=== PATIENT | female | born 1960 | race American Indian/Alaskan Native ===

== ENCOUNTER 2017-06-25 07:34 | Inpatient (IN) | payer MEDICARE, OTHER ==
[2017-06-25 07:39] VITALS: BMI 31.0
[2017-06-25] MEDS ORDERED: Sodium Chloride 0.9% 1,000 ML IV SCH (08:00)
[2017-06-25 08:17] LABS: BASO # 0.1 K/uL (0.0-0.2); BASO % 0.6 % (0.0-2.0); EOS # 0.2 K/uL (0.0-0.7); EOS % 2.1 % (0.0-4.0); HEMOGLOBIN 14.4 g/dL (12.0-16.0); LYMPH # 2.8 K/uL (1.0-4.3); LYMPH % 28.1 % (20.0-40.0); MEAN CELL VOLUME 80.6 fl (81.0-99.0); MEAN CORPUSCULAR HEMOGLOBIN 26.3 pg (27.0-31.0); MEAN CORPUSCULAR HGB CONC 32.6 g/dL (33.0-37.0); MEAN PLATELET VOLUME 8.1 fl (7.2-11.7); MONO # 0.6 K/uL (0.0-0.8); MONO % 5.8 % (0.0-10.0); NEUT # 6.3 K/uL (1.8-7.0); NEUT % 63.4 % (50.0-75.0); NRBC % 0.1 % (0.0-0.0); RBC 5.47 Mil/uL (3.80-5.20); RED CELL DISTRIBUTION WIDTH 17.6 % (11.5-14.5); WHITE BLOOD COUNT 9.9 K/uL (4.8-10.8)
--- NOTE | 2017-06-25 08:18 | CT ---
PROCEDURE: CT HEAD WITHOUT CONTRAST. HISTORY: code stroke COMPARISON: None available. TECHNIQUE: Axial computed tomography images were obtained through the head/brain without intravenous contrast. Radiation dose: Total exam DLP = 908 mGy-cm. This CT exam was performed using one or more of the following dose reduction techniques: Automated exposure control, adjustment of the mA and/or kV according to patient size, and/or use of iterative reconstruction technique. FINDINGS: HEMORRHAGE: No intracranial hemorrhage. BRAIN: No mass effect or edema. No atrophy or chronic microvascular ischemic changes. VENTRICLES: Unremarkable. No hydrocephalus. CALVARIUM: Unremarkable. PARANASAL SINUSES: Unremarkable as visualized. No significant inflammatory changes. MASTOID AIR CELLS: Unremarkable as visualized. No inflammatory changes. OTHER FINDINGS: None. IMPRESSION: No acute intracranial pathology. Findings conveyed to Dr. Villeda by Dr. Carrillo at 8:15 a.m. on 06/25/2017.
[2017-06-25 08:28] LABS: ALB/GLOB RATIO 1.2 (1.0-2.1); ALBUMIN 4.1 g/dL (3.5-5.0); ALT/SGPT 52 U/L (9-52); AST/SGOT 35 U/L (14-36); BLOOD UREA NITROGEN 25 mg/dl (7-17); CALCIUM 8.9 mg/dL (8.4-10.2); GFR AFRICAN-AMERICAN > 60; GFR NON-AFRICAN AMERICAN > 60; HDL CHOLESTEROL 38 MG/DL (30-70)
[2017-06-25 08:31] LABS: PROTHROMBIN TIME 11.6 Seconds (9.8-13.1)
[2017-06-25 08:32] LABS: PARTIAL THROMBOPLASTIN TIME 26.8 Seconds (25.6-37.1)
[2017-06-25 08:38] LABS: LDL CHOLESTEROL 69 mg/dL (0-129)
[2017-06-25] MEDS ORDERED: Iodixanol 320 MG/ML 100 ML BOTTLE IV ONE (09:06)
[2017-06-25] MEDS ORDERED: Sodium Chloride 0.9% 100 ML ONE (09:06)
--- NOTE | 2017-06-25 09:23 | RAD ---
HISTORY: Code Stroke COMPARISON: No prior. FINDINGS: LUNGS: No active pulmonary disease. PLEURA: No significant pleural effusion identified, no pneumothorax apparent. CARDIOVASCULAR: Atherosclerotic aortic calcifications. Cardiomediastinal silhouette within normal limits. OSSEOUS STRUCTURES: No significant abnormalities. VISUALIZED UPPER ABDOMEN: Normal. OTHER FINDINGS: None. IMPRESSION: No active disease.
--- NOTE | 2017-06-25 09:59 | CT ---
EXAM: CT Angiography Head With Intravenous Contrast CLINICAL HISTORY: 57 years old, female; Pain; Headache; Additional info: Transient slurred speech/rue weakness TECHNIQUE: Axial computed tomographic angiography images of the head with intravenous contrast using CT angiography protocol. All CT scans at this facility use one or more dose reduction techniques, viz.: automated exposure control; ma/kV adjustment per patient size (including targeted exams where dose is matched to indication; i.e. head); or iterative reconstruction technique. MIP reconstructed images were created and reviewed. Coronal and sagittal reformatted images were created and reviewed. CONTRAST: 99 mL of [id number] administered intravenously. COMPARISON: CT - HEAD W/O (CODE STROKE) 2017-06-25 08:06 FINDINGS: Right internal carotid artery: No acute findings. Intracranial segment is patent with no significant stenosis. No aneurysm. Right anterior cerebral artery: Unremarkable. No occlusion or significant stenosis. No aneurysm. Right middle cerebral artery: Unremarkable. No occlusion or significant stenosis. No aneurysm. Right posterior cerebral artery: Unremarkable. No occlusion or significant stenosis. No aneurysm. Right vertebral artery: Unremarkable. Left internal carotid artery: No acute findings. Intracranial segment is patent with no significant stenosis. No aneurysm. Left anterior cerebral artery: Unremarkable. No occlusion or significant stenosis. No aneurysm. Left middle cerebral artery: Unremarkable. No occlusion or significant stenosis. No aneurysm. Left posterior cerebral artery: Unremarkable. No occlusion or significant stenosis. No aneurysm. Left vertebral artery: Unremarkable. Basilar artery: Unremarkable. No occlusion or significant stenosis. No aneurysm. IMPRESSION: Normal head CTA. EXAM: CT Angiography Neck With Intravenous Contrast CLINICAL HISTORY: 57 years old, female; Pain; Headache; Additional info: Transient slurred speech/rue weakness TECHNIQUE: Axial computed tomographic angiography images of the neck with intravenous contrast using CT angiography protocol. All CT scans at this facility use one or more dose reduction techniques, viz.: automated exposure control; ma/kV adjustment per patient size (including targeted exams where dose is matched to indication; i.e. head); or iterative reconstruction technique. MIP reconstructed images were created and reviewed. Coronal and sagittal reformatted images were created and reviewed. CONTRAST: 99 mL of [id number] administered intravenously. COMPARISON: No relevant prior studies available. FINDINGS: VASCULATURE: Right common carotid artery: Unremarkable. No significant stenosis. No dissection or occlusion. Right internal carotid artery: Unremarkable. Extracranial segment is patent with no significant stenosis. No dissection or occlusion. Right external carotid artery: Unremarkable. No occlusion. Right vertebral artery: Unremarkable. No significant stenosis. No dissection or occlusion. Left common carotid artery: Unremarkable. No significant stenosis. No dissection or occlusion. Left internal carotid artery: There is calcified plaque involving the left carotid bulb seen on image 25 series 601. Extracranial segment is patent with no significant stenosis. No dissection or occlusion. Left external carotid artery: Unremarkable. No occlusion. Left vertebral artery: Unremarkable. No significant stenosis. No dissection or occlusion. Other vasculature: There is gas in the brachiocephalic vein. NECK: Bones/joints: No acute fracture. No dislocation. Soft tissues: Unremarkable. No mass. Lung apices: Bilateral upper lobe pulmonary arterial branches filling defects seen on image 264 to 294 through series 3 representing pulmonary embolus. Heart: There is fluid in the superior pericardial recess. Mediastinum: Nonspecific esophageal thickening likely due to underdistention. CAROTID STENOSIS REFERENCE USING NASCET CRITERIA: % ICA stenosis = (1 - narrowest ICA diameter/diameter of distal cervical ICA) x 100. Mild - <50% stenosis. Moderate - 50-69% stenosis. Severe - 70-94% stenosis. Near occlusion - 95-99% stenosis. Occluded - 100% stenosis. IMPRESSION: 1. Bilateral upper lobe pulmonary arterial branches filling defects seen on image 264 to 294 through series 3 representing pulmonary embolus. 2. No acute vascular abnormality is identified in the carotid vertebral system and in the intracranial vasculature.
--- NOTE | 2017-06-25 10:18 | ED PDOC ---
HPI:STROKE - Historian Historian: Patient, Family (sister) - Chief Complaint Chief Complaint: Weakness, Slurred speech (unclear) - Onset Date: 06/25/17 Time: 06:30 Onset: This morning - Context Context: Home - Notes: Notes:: 57 year old female with medical history of COPD, HTN and HCL, presents to the emergency department for an evaluation of a possible stroke occurring between [id number] earlier this morning. Patient's sister states she witnessed patient ambulating well to fridge and had a water bottle slip out of her hands. Patient then attempted to picker bottle on floor 3 times unsuccessfully. 911 call was placed and sister was instructed to ask patient to say certain words, in which, patient repeated in an unclear speech. Patient denies any headache, dizziness, chest pain or shortness of breath. Of note, patient reports last alcoholic drink was 6 months ago. PMD: none provided NIHSS Stroke Scale - Date/Time Evaluation Performed When Was NIHSS Performed: Baseline - How Severe is the Stroke Level of Consciousness: 0=Alert LOC to Questions: 0=Both comments correct Best Gaze: 0=Normal Visual: 0=No visual loss Facial: 0=Normal Motor Arm - Left: 0=No drift Motor Arm - Right: 0=No drift Motor Leg - Left: 0=No drift Motor Leg - Right: 0=No drift Limb Ataxia: 0=Absent Sensory: 0=Normal Best Language: 0=No aphasia Dysarthia: 0=Normal articulation Extinction & Inattention (Neglect): 0=Normal, no object Severity Of Stroke: 0 = No Stroke rTPA Inclusion/Exclusion - Refusal of Treatment Patient Refused Treatment: No - Inclusion Criteria for Altepase Patient is 18 years or Older: Yes The Clinical Diagnosis of Ischemic Stroke That is Causing a Potentially Disabling Neurological Deficit: No Time of Onset is Well Established to be Less Than 270 Minute Before Treatment Would Begin: No Risk/Benefit Discussed With Patient/Family Member Present: Yes Past Medical History Reviewed: Historical Data, Nursing Documentation, Vital Signs Vital Signs: Last Vital Signs Temp 97 F L 06/25/17 07:37 Pulse 84 06/25/17 08:39 Resp 06/25/17 08:39 BP 150/77 06/25/17 08:39 Pulse Ox 88 L 06/25/17 08:39 - Medical History PMH: COPD, HTN, Hypercholesterolemia - Family History Family History: States: Stroke (mother), Diabetes (mother) - Social History Current smoker - smoking cessation education provided: No Alcohol: Other (last drink was 6 months ago) Drugs: Denies - Home Medications Home Medications: Ambulatory Orders Medication Instructions Recorded Aripiprazole [Abilify] 30 mg PO DAILY 06/25/17 Atorvastatin Calcium 40 mg PO HS 06/25/17 Bupropion HCl [Wellbutrin XL] 300 mg PO DAILY 06/25/17 Citalopram Hydrobromide 40 mg PO DAILY 06/25/17 [Citalopram HBr] Multivitamin/Minerals 1 tab PO DAILY 06/25/17 [place]-3S/Dha/Epa/Fish Oil/D3 800 mg PO DAILY 06/25/17 [Cardio [place] Benefits Softgel] Prazosin HCL [Minipress] 2 mg PO HS 06/25/17 Trazodone HCl 100 mg PO HS PRN 06/25/17 amLODIPine [Norvasc] 5 mg PO DAILY 06/25/17 hydroCHLOROthiazide [Microzide] 12.5 mg PO DAILY 06/25/17 - Allergies Allergies/Adverse Reactions: Allergies Allergy/AdvReac Type Severity Reaction Status Date / Time No Known Allergies Allergy Verified 06/25/17 07:50 Review of Systems ROS Statement: Except As Marked, All Systems Reviewed And Found Negative Cardiovascular: Negative for: Chest Pain Respiratory: Negative for: Shortness of Breath Musculoskeletal: Positive for: Other (able to ambulate without difficulty) Neurological: Positive for: Weakness, Change in Speech (not clear). Negative for: Headache, Dizziness Physical Exam - Reviewed Nursing Documentation Reviewed: Yes Vital Signs Reviewed: Yes - Physical Exam Appears: Positive for: No Acute Distress Head Exam: Positive for: ATRAUMATIC, NORMAL INSPECTION, NORMOCEPHALIC Neck: Positive for: Normal, Painless ROM, Supple Cardiovascular/Chest: Positive for: Regular Rate, Rhythm Respiratory: Positive for: Normal Breath Sounds. Negative for: Wheezing, Respiratory Distress Gastrointestinal/Abdominal: Positive for: Normal Exam, Soft. Negative for: Tenderness Extremity: Positive for: Normal ROM (upper/lower with 5/5 motor strength) Neurologic/Psych: Positive for: Alert (x3), sports reporter II-XII (intact), Oriented, Other (finger to nose is within normal limits). Negative for: Motor/Sensory Deficits, Aphasia, Facial Droop - Laboratory Results Result Diagrams: 06/25/17 08:08 06/25/17 08:08 - ECG O2 Sat by Pulse Oximetry: 88 (RA) Pulse Ox Interpretation: Normal - Critical Care Total Time (In Min): 30 Medical Decision Making Medical Decision Making: Initial Impression: possible CVA Initial Plan: * Type and screen * CT head without contrast * EKG * CMP * Hemoglobin A1C * Lipid panel * Troponin I * Stroke team consult 822 * CBC * PTT * PT * CXR * NS 1,000ml IV per 100mls/hr * Accucheck Time: 815 --CT head FINDINGS: HEMORRHAGE: No intracranial hemorrhage. BRAIN: No mass effect or edema. No atrophy or chronic microvascular ischemic changes. VENTRICLES: Unremarkable. No hydrocephalus. CALVARIUM: Unremarkable. PARANASAL SINUSES: Unremarkable as visualized. No significant inflammatory changes. MASTOID AIR CELLS: Unremarkable as visualized. No inflammatory changes. OTHER FINDINGS: None. IMPRESSION: No acute intracranial pathology. Time: 814 --Discussed case with Dr. Reyes who concurs with symptoms relating to TIA. --Will admit patient for further evaluation. Time: 920 -CXR: FINDINGS: LUNGS: No active pulmonary disease. PLEURA: No significant pleural effusion identified, no pneumothorax apparent. CARDIOVASCULAR: Atherosclerotic aortic calcifications. Cardiomediastinal silhouette within normal limits. OSSEOUS STRUCTURES: No significant abnormalities. VISUALIZED UPPER ABDOMEN: Normal. OTHER FINDINGS: None. IMPRESSION: No active disease. Time: 958 --CTA head FINDINGS: Right internal carotid artery: No acute findings. Intracranial segment is patent with no significant stenosis. No aneurysm. Right anterior cerebral artery: Unremarkable. No occlusion or significant stenosis. No aneurysm. Right middle cerebral artery: Unremarkable. No occlusion or significant stenosis. No aneurysm. Right posterior cerebral artery: Unremarkable. No occlusion or significant stenosis. No aneurysm. Right vertebral artery: Unremarkable. Left internal carotid artery: No acute findings. Intracranial segment is patent with no significant stenosis. No aneurysm. Left anterior cerebral artery: Unremarkable. No occlusion or significant stenosis. No aneurysm. Left middle cerebral artery: Unremarkable. No occlusion or significant stenosis. No aneurysm. Left posterior cerebral artery: Unremarkable. No occlusion or significant stenosis. No aneurysm. Left vertebral artery: Unremarkable. Basilar artery: Unremarkable. No occlusion or significant stenosis. No aneurysm. IMPRESSION: Normal head CTA. --CTA Neck FINDINGS: VASCULATURE: Right common carotid artery: Unremarkable. No significant stenosis. No dissection or occlusion. Right internal carotid artery: Unremarkable. Extracranial segment is patent with no significant stenosis. No dissection or occlusion. Right external carotid artery: Unremarkable. No occlusion. Right vertebral artery: Unremarkable. No significant stenosis. No dissection or occlusion. Left common carotid artery: Unremarkable. No significant stenosis. No dissection or occlusion. Left internal carotid artery: There is calcified plaque involving the left carotid bulb seen on image 25 series 601. Extracranial segment is patent with no significant stenosis. No dissection or occlusion. Left external carotid artery: Unremarkable. No occlusion. Left vertebral artery: Unremarkable. No significant stenosis. No dissection or occlusion. Other vasculature: There is gas in the brachiocephalic vein. NECK: Bones/joints: No acute fracture. No dislocation. Soft tissues: Unremarkable. No mass. Lung apices: Bilateral upper lobe pulmonary arterial branches filling defects seen on image 264 to 294 through series 3 representing pulmonary embolus. Heart: There is fluid in the superior pericardial recess. Mediastinum: Nonspecific esophageal thickening likely due to underdistention. CAROTID STENOSIS REFERENCE USING NASCET CRITERIA: % ICA stenosis = (1 - narrowest ICA diameter/diameter of distal cervical ICA) x 100. Mild - <50% stenosis. Moderate - 50-69% stenosis. Severe - 70-94% stenosis. Near occlusion - 95-99% stenosis. Occluded - 100% stenosis. IMPRESSION: 1. Bilateral upper lobe pulmonary arterial branches filling defects seen on image 264 to 294 through series 3 representing pulmonary embolus. 2. No acute vascular abnormality is identified in the carotid vertebral system and in the intracranial vasculature. Scribe Attestation: Documented by Ngozi Topete, acting as a scribe for Sydni Villeda MD. Provider Scribe Attestation: All medical record entries made by the Scribe were at my direction and personally dictated by me. I have reviewed the chart and agree that the record accurately reflects my personal performance of the history, physical exam, medical decision making, and the department course for this patient. I have also personally directed, reviewed, and agree with the discharge instructions and disposition. Disposition - Clinical Impression Clinical Impression: TIA (transient ischemic attack) - Patient ED Disposition Is Patient to be Admitted: Yes Doctor Will See Patient In The: Hospital - Disposition Disposition: Routine/Home Disposition Time: 13:07 Condition: FAIR - POA Present On Arrival: None
[2017-06-25] MEDS ORDERED: Enoxaparin 80 mg Syringe SC ONE (11:00)
--- NOTE | 2017-06-25 12:53 | CP.PCM.CON ---
History of Present Illness - History of Present Illness History of Present Illness: 57 yr old woman who was well until 630 am this morning, when she woke up and was going to bathroom, with witnessed slurred speech, and left arm numbness and heaviness. There was no headache, no aphasia, as witnessed by her sister, and no other symptoms. Past Patient History - Past Social History Alcohol: Other (last drink was 6 months ago) Drugs: Denies - CARDIAC Hx Hypercholesterolemia: Yes Hx Hypertension: Yes - PULMONARY Hx Chronic Obstructive Pulmonary Disease (COPD): Yes Meds Allergies/Adverse Reactions: Allergies Allergy/AdvReac Type Severity Reaction Status Date / Time No Known Allergies Allergy Verified 06/25/17 07:50 - Medications Medications: Current Medications Sodium Chloride (Sodium Chloride 0.9%) 1,000 mls @ 100 mls/hr IV .Q10H TONIA Last Admin: 06/25/17 08:27 Dose: 100 mls/hr Results - Vital Signs Recent Vital Signs: Last Vital Signs Temp 97 F L 06/25/17 07:37 Pulse 83 06/25/17 11:23 Resp 22 06/25/17 11:23 BP 128/86 06/25/17 11:23 Pulse Ox 91 L 06/25/17 11:23 - Labs Result Diagrams: 06/25/17 08:08 06/25/17 08:08 Labs: Laboratory Results - last 24 hr 06/25/17 06/25/17 06/25/17 07:52 08:08 08:08 WBC 9.9 RBC 5.47 H Hgb 14.4 Hct 44.1 MCV 80.6 L MCH 26.3 L MCHC 32.6 L RDW 17.6 H Plt Count 275 MPV 8.1 Neut % (Auto) 63.4 Lymph % (Auto) 28.1 [place] % (Auto) 5.8 Eos % (Auto) 2.1 Baso % (Auto) 0.6 Neut # (Auto) 6.3 Lymph # (Auto) 2.8 [place] # (Auto) 0.6 Eos # (Auto) 0.2 Baso # (Auto) 0.1 PT INR APTT Sodium 146 Potassium 3.2 L Chloride 105 Carbon Dioxide 24 Anion Gap 20 BUN 25 H Creatinine 0.9 Est GFR ( Amer) > 60 Est GFR (Non-Af Amer) > 60 POC Glucose (mg/dL) 130 H Random Glucose 134 H Calcium 8.9 Total Bilirubin 1.0 AST 35 ALT 52 Alkaline Phosphatase 85 Troponin I 0.0410 Total Protein 7.5 Albumin 4.1 Globulin 3.4 Albumin/Globulin Ratio 1.2 Triglycerides 122 Cholesterol 135 LDL Cholesterol Direct 69 HDL Cholesterol 38 Blood Type Antibody Screen BBK History Checked 06/25/17 06/25/17 08:08 08:23 WBC RBC Hgb Hct MCV MCH MCHC RDW Plt Count MPV Neut % (Auto) Lymph % (Auto) [place] % (Auto) Eos % (Auto) Baso % (Auto) Neut # (Auto) Lymph # (Auto) [place] # (Auto) Eos # (Auto) Baso # (Auto) PT 11.6 INR 1.0 APTT 26.8 Sodium Potassium Chloride Carbon Dioxide Anion Gap BUN Creatinine Est GFR ( Amer) Est GFR (Non-Af Amer) POC Glucose (mg/dL) Random Glucose Calcium Total Bilirubin AST ALT Alkaline Phosphatase Troponin I Total Protein Albumin Globulin Albumin/Globulin Ratio Triglycerides Cholesterol LDL Cholesterol Direct HDL Cholesterol Blood Type B POSITIVE Antibody Screen Negative BBK History Checked No verified bt
[2017-06-25] MEDS ORDERED: Potassium Chloride 20 mEq ER Tab PO ONE (13:06)
--- NOTE | 2017-06-25 20:40 | CP.PCM.HP ---
History of Present Illness - History of Present Illness History of Present Illness: This is 57 y/o female admitted for a brief period of right upper ext weakness and slurred speech early in the morning. Family and patient claim that around 6: 30 in the morning, she noted that a bottle of water kept on slipping out of her hand and sister noted slurred speech, she was brought to [facility] and during transport her symptoms were noted to have resolved. She has a hx of HTN hyperlipidemia and psychiatric condition ( depression and psychosis? Currently on Norvasc, statin ASA , abilify, wellbutrin, Citalopram and trazodone. A CTA was performed and MRA showed no acute findings. There was no carotid stenosis. An incidental finding of bilateral Pulmonary embolism was noted. She denies any chest pain, or SOB. She also denies any leg pain. She has been ambulatory and claims that shes physically active and denies sedentary activity. Present on Admission - Present on Admission Any Indicators Present on Admission: No History of DVT/PE: No History of Uncontrolled Diabetes: No Urinary Catheter: No Decubitus Ulcer Present: No Review of Systems - Psychiatric Psychiatric: Depression Past Patient History - Past Social History Smoking Status: Current Some Days Smoker - CARDIAC Hx Hypercholesterolemia: Yes Hx Hypertension: Yes - PULMONARY Hx Chronic Obstructive Pulmonary Disease (COPD): Yes - HEMATOLOGICAL/ONCOLOGICAL Hx AIDS: No Hx Human Immunodeficiency Virus (HIV): No - MUSCULOSKELETAL/RHEUMATOLOGICAL Hx Falls: No - PSYCHIATRIC Hx Substance Use: No - SURGICAL HISTORY Hx Surgeries: No Meds Allergies/Adverse Reactions: Allergies Allergy/AdvReac Type Severity Reaction Status Date / Time No Known Allergies Allergy Verified 06/25/17 07:50 Physical Exam - Head Exam Head Exam: NORMAL INSPECTION - Eye Exam Eye Exam: Normal appearance - ENT Exam ENT Exam: Mucous Membranes Moist - Respiratory Exam Respiratory Exam: Clear to Auscultation Bilateral, NORMAL BREATHING PATTERN - Cardiovascular Exam Cardiovascular Exam: REGULAR RHYTHM - GI/Abdominal Exam GI & Abdominal Exam: Normal Bowel Sounds - Neurological Exam Neurological exam: Alert, CN II-XII Intact, Normal Gait, Oriented x3, Reflexes Normal - Psychiatric Exam Psychiatric exam: Normal Mood - Skin Skin Exam: Normal Color Results - Vital Signs Recent Vital Signs: Last Vital Signs Temp 98 F 06/25/17 20:06 Pulse 91 H 06/25/17 20:06 Resp 18 06/25/17 20:06 BP 119/84 06/25/17 20:06 Pulse Ox 92 L 06/25/17 20:06 - Labs Result Diagrams: 06/25/17 08:08 06/25/17 08:08 Labs: Laboratory Results - last 24 hr 06/25/17 06/25/17 06/25/17 07:52 08:08 08:08 WBC 9.9 RBC 5.47 H Hgb 14.4 Hct 44.1 MCV 80.6 L MCH 26.3 L MCHC 32.6 L RDW 17.6 H Plt Count 275 MPV 8.1 Neut % (Auto) 63.4 Lymph % (Auto) 28.1 [place] % (Auto) 5.8 Eos % (Auto) 2.1 Baso % (Auto) 0.6 Neut # (Auto) 6.3 Lymph # (Auto) 2.8 [place] # (Auto) 0.6 Eos # (Auto) 0.2 Baso # (Auto) 0.1 PT INR APTT Sodium 146 Potassium 3.2 L Chloride 105 Carbon Dioxide 24 Anion Gap 20 BUN 25 H Creatinine 0.9 Est GFR ( Amer) > 60 Est GFR (Non-Af Amer) > 60 POC Glucose (mg/dL) 130 H Random Glucose 134 H Calcium 8.9 Total Bilirubin 1.0 AST 35 ALT 52 Alkaline Phosphatase 85 Troponin I 0.0410 Total Protein 7.5 Albumin 4.1 Globulin 3.4 Albumin/Globulin Ratio 1.2 Triglycerides 122 Cholesterol 135 LDL Cholesterol Direct 69 HDL Cholesterol 38 Blood Type Antibody Screen BBK History Checked 06/25/17 06/25/17 08:08 08:23 WBC RBC Hgb Hct MCV MCH MCHC RDW Plt Count MPV Neut % (Auto) Lymph % (Auto) [place] % (Auto) Eos % (Auto) Baso % (Auto) Neut # (Auto) Lymph # (Auto) [place] # (Auto) Eos # (Auto) Baso # (Auto) PT 11.6 INR 1.0 APTT 26.8 Sodium Potassium Chloride Carbon Dioxide Anion Gap BUN Creatinine Est GFR ( Amer) Est GFR (Non-Af Amer) POC Glucose (mg/dL) Random Glucose Calcium Total Bilirubin AST ALT Alkaline Phosphatase Troponin I Total Protein Albumin Globulin Albumin/Globulin Ratio Triglycerides Cholesterol LDL Cholesterol Direct HDL Cholesterol Blood Type B POSITIVE Antibody Screen Negative BBK History Checked No verified bt Assessment & Plan (1) Pulmonary embolism Status: Acute (2) Hypertension Status: Acute (3) Hyperlipidemia Status: Acute (4) Depression Status: Acute (5) TIA (transient ischemic attack) Status: Acute - Assessment and Plan (Free Text) Plan: start Lovenox at 1 mg.kg q 12 hr Neuro eval Neuro check ASA 81 Pulmonary eval check A1c lipid tsh cmp cbc in am ECHO venous doppler lower ext start PT.
[2017-06-25] MEDS: Enoxaparin 80 mg Syringe SC SCH (21:38)
[2017-06-25 22:10] LABS: ABG ALLEN TEST YES; ARTERIAL BLOOD GAS HCO3 28.9 mmol/L (21-28); ARTERIAL BLOOD GAS HEMOGLOBIN 15.1 g/dL (11.7-17.4); ARTERIAL BLOOD GAS O2 CAPACITY 20.4 mL/dL (16-24); ARTERIAL BLOOD GAS O2 CONTENT 18.9 ML/dL (15-23); ARTERIAL BLOOD GAS O2 SAT 92.5 % (95-98); ARTERIAL BLOOD GAS PCO2 38 mm/Hg (35-45); ARTERIAL BLOOD GAS PH 7.49 (7.35-7.45); ARTERIAL BLOOD GAS PO2 58 mm/Hg (80-100); ARTERIAL BLOOD GAS TCO2 30.2 mmol/L (22-28)
[2017-06-26 06:03] LABS: ABG ALLEN TEST YES; ARTERIAL BLOOD GAS HEMOGLOBIN 14.3 g/dL (11.7-17.4); ARTERIAL BLOOD GAS O2 CAPACITY 19.5 mL/dL (16-24); ARTERIAL BLOOD GAS O2 CONTENT 18.6 ML/dL (15-23); ARTERIAL BLOOD GAS O2 SAT 95.6 % (95-98); ARTERIAL BLOOD GAS PCO2 43 mm/Hg (35-45); ARTERIAL BLOOD GAS PH 7.42 (7.35-7.45); ARTERIAL BLOOD GAS PO2 71 mm/Hg (80-100); ARTERIAL BLOOD GAS TCO2 29.2 mmol/L (22-28)
[2017-06-26] MEDS: Enoxaparin 80 mg Syringe SC SCH ×2 (09:28→21:50)
--- NOTE | 2017-06-26 10:05 | CP.PCM.PN ---
Subjective - Date & Time of Evaluation Date of Evaluation: 06/26/17 Time of Evaluation: 10:02 - Subjective Subjective: Ms. Williamson was seen and examined at the bedside. She is alert, oriented in all spheres. She denies any headache, dizziness, lightheadedness, nausea, or vomiting. She is able to follow all simple commands. A CTA showed no acute findings. There was no carotid stenosis. An incidental finding of bilateral Pulmonary embolism was noted. Ct scan showed normal.There was no untoward events overnight. Objective - Vital Signs/Intake and Output Vital Signs (last 24 hours): Temp Pulse Resp BP Pulse Ox 98.1 F 74 18 110/71 95 06/26/17 08:14 06/26/17 08:14 06/26/17 08:14 06/26/17 08:14 06/26/17 08:14 - Medications Medications: Current Medications Atorvastatin Calcium (Lipitor) 10 mg PO DAILY [facility] Enoxaparin Sodium (Lovenox) 80 mg SC Q12 [facility] PRN Reason: Protocol Last Admin: 06/26/17 09:28 Dose: 80 mg Sodium Chloride (Sodium Chloride 0.9%) 1,000 mls @ 100 mls/hr IV .Q10H [facility] Last Admin: 06/25/17 08:27 Dose: 100 mls/hr - Labs Labs: 06/25/17 08:08 06/25/17 08:08 PT 11.6 Seconds (9.8-13.1) 06/25/17 08:08 INR 1.0 (0.9-1.2) 06/25/17 08:08 APTT 26.8 Seconds (25.6-37.1) 06/25/17 08:08 - Constitutional Appears: No Acute Distress - Head Exam Head Exam: NORMAL INSPECTION - Neurological Exam Neurological Exam: Alert, Awake, Oriented x3 Neuro motor strength exam: Left Upper Extremity: 5, Right Upper Extremity: 5, Left Lower Extremity: 5, Right Lower Extremity: 5 Additional comments: She is alert, oriented , follows commands. Sensation in intact. Assessment and Plan (1) TIA (transient ischemic attack) Assessment & Plan: Case discussed with Dr. Reyes, continue all current medical, physical, and occupational therapies. Recommend immediate pulmonary consult and treatment of her pulmonary embolism. At this time, neurology is not her priority but to treat the PE. Status: Acute
--- NOTE | 2017-06-26 10:31 | CARD ---
APPROVED REPORT EKG Measurement Heart [id number] <Conclusion> Normal sinus rhythm Left posterior fascicular block Possible Inferior infarct, age undetermined Abnormal ECG
--- NOTE | 2017-06-26 11:08 | US ---
PROCEDURE: Bilateral lower extremity venous duplex Doppler. HISTORY: r/o DVT COMPARISON: None available. TECHNIQUE: Bilateral common femoral, superficial femoral, popliteal and posterior tibial veins were evaluated. Flow was assessed with color Doppler, compressibility, assessment of phasic flow and augmentation response. FINDINGS: COMMON FEMORAL VEIN: Right CFV: Unremarkable. Left CFV: Unremarkable. SUPERFICIAL FEMORAL VEIN: Right SFV: Unremarkable. Left SFV: Unremarkable. POPLITEAL VEIN: Right Popliteal: Unremarkable. Left Popliteal: Unremarkable. POSTERIOR TIBIAL VEIN: Right PTV: Unremarkable. Left PTV: Unremarkable. OTHER FINDINGS: None. IMPRESSION: No evidence of deep venous thrombosis.
--- NOTE | 2017-06-26 14:33 | CP.PCM.CON ---
History of Present Illness - History of Present Illness History of Present Illness: Pulmonary consult for a 57 y/o F, Hx of COPD , NOHELIA , Obesity , current smoker on O2 24/7 , c/o of with moderate SOB at the same time Patient developed neurologic symptoms DOA , ER [facility] B/L upper Lobe Pulmonary Emboli, incidentally found in the Head/Neck CTA of 06/25/17. Patient with no previous Hx of P/E or DVT Pt 's sister with Hx of NOHELIA, Obesity, COPD, permanent Tracheostomy and previous Hx years ago of DVT currently on Coumadin. Aggravated factor: Movements. Worsening symptoms: Hx of weakness RUE, slurred speech, witnessed by her sister while at home about 6:30 AM DOA, Pt was Tx in the ER with TPA and symptoms subsided. Patient's sister stated that Patient had COPD on O2 24/7 and off O2 POx is aprox. 85% Pt denied: Fever, chills, dizziness, CP, lightheadedness, legs pain, n/v/d, abdominal pain, urinary symptoms, sick contact, recent travel out of [place]. Ext [place] No evidence of DVT. Review of Systems - Review of Systems All systems: reviewed and no additional remarkable complaints except (HPI) - Constitutional Constitutional: Other (negative) - EENT Eyes: Requires Corrective Lenses Ears: Other (negative) Nose/Mouth/Throat: Other (negative) - Cardiovascular Cardiovascular: Other (negative) - Respiratory Respiratory: Dyspnea - Gastrointestinal Gastrointestinal: Other (negative) - Genitourinary Genitourinary: Other (negative) - Musculoskeletal Musculoskeletal: Other (negative) - Integumentary Integumentary: Other (negative) - Neurological Neurological: Other (negative) - Psychiatric Psychiatric: Other (negative) - Endocrine Endocrine: Other (negative) - Hematologic/Lymphatic Hematologic: Other (negative) Past Patient History - Past Medical History & Family History Pertinent Family History: Mother: Stroke, DM - Past Social History Smoking Status: Current Some Days Smoker Alcohol: Other (last drink 6 month ago.) Drugs: Denies Home Situation {Lives}: With Family - CARDIAC Hx Cardiac Disorders: Yes Hx Hypercholesterolemia: Yes Hx Hypertension: Yes - PULMONARY Hx Respiratory Disorders: Yes Hx Chronic Obstructive Pulmonary Disease (COPD): Yes - NEUROLOGICAL Hx Neurological Disorder: No - HEENT Hx HEENT Problems: Yes (NOHELIA) - RENAL Hx Chronic Kidney Disease: No - ENDOCRINE/METABOLIC Hx Endocrine Disorders: No Other/Comment: Obesity - HEMATOLOGICAL/ONCOLOGICAL Hx Blood Disorders: No Hx AIDS: No Hx Human Immunodeficiency Virus (HIV): No - INTEGUMENTARY Hx Dermatological Problems: No - MUSCULOSKELETAL/RHEUMATOLOGICAL Hx Musculoskeletal Disorders: No Hx Falls: No - GASTROINTESTINAL Hx Gastrointestinal Disorders: No - GENITOURINARY/GYNECOLOGICAL Hx Genitourinary Disorders: No - PSYCHIATRIC Hx Psychophysiologic Disorder: No Hx Substance Use: No - SURGICAL HISTORY Hx Surgeries: No Meds Allergies/Adverse Reactions: Allergies Allergy/AdvReac Type Severity Reaction Status Date / Time No Known Allergies Allergy Verified 06/25/17 07:50 - Medications Medications: Current Medications Atorvastatin Calcium (Lipitor) 10 mg PO DAILY [facility] Enoxaparin Sodium (Lovenox) 80 mg SC Q12 [facility] PRN Reason: Protocol Last Admin: 06/26/17 09:28 Dose: 80 mg Sodium Chloride (Sodium Chloride 0.9%) 1,000 mls @ 100 mls/hr IV .Q10H [facility] Last Admin: 06/25/17 08:27 Dose: 100 mls/hr Physical Exam - Constitutional Appears: No Acute Distress - Head Exam Head Exam: NORMAL INSPECTION - Eye Exam Eye Exam: PERRL - ENT Exam ENT Exam: Normal Exam - Neck Exam Neck exam: Positive for: Normal Inspection - Respiratory Exam Respiratory Exam: Decreased Breath Sounds (b/l) - Cardiovascular Exam Cardiovascular Exam: REGULAR RHYTHM - GI/Abdominal Exam GI & Abdominal Exam: Normal Bowel Sounds, Soft - Extremities Exam Extremities exam: Positive for: normal inspection - Back Exam Back exam: NORMAL INSPECTION - Neurological Exam Neurological exam: Alert, Oriented x3 Additional comments: No motor sensory deficit. - Psychiatric Exam Psychiatric exam: Normal Mood - Skin Skin Exam: Normal Color, Warm Results - Vital Signs Recent Vital Signs: Last Vital Signs Temp 98.1 F 06/26/17 12:19 Pulse 82 06/26/17 12:19 Resp 18 06/26/17 12:19 BP 114/79 06/26/17 12:19 Pulse Ox 95 06/26/17 12:19 reviewed Megan - Labs Result Diagrams: 06/25/17 08:08 06/25/17 08:08 Labs: Laboratory Results - last 24 hr 06/25/17 06/25/17 06/26/17 12:40 22:00 05:20 pCO2 38 pO2 58 L HCO3 28.9 H ABG pH 7.49 H ABG Total CO2 30.2 H ABG O2 Saturation 92.5 L ABG O2 Content 18.9 ABG Base Excess 5.4 H ABG Hemoglobin 15.1 ABG Carboxyhemoglobin 1.9 H POC ABG HHb (Measured) 7.3 H ABG Methemoglobin 1.4 ABG O2 Capacity 20.4 Rambo Test Yes A-a O2 Difference 94.0 Hgb O2 Saturation 89.4 L Vent Mode FiO2 28.0 Hemoglobin A1c 6.3 Triglycerides 124 Cholesterol 146 LDL Cholesterol Direct 78 HDL Cholesterol 37 TSH 3rd Generation 2.78 06/26/17 05:50 pCO2 43 pO2 71 L HCO3 27.0 ABG pH 7.42 ABG Total CO2 29.2 H ABG O2 Saturation 95.6 ABG O2 Content 18.6 ABG Base Excess 2.9 ABG Hemoglobin 14.3 ABG Carboxyhemoglobin 2.1 H POC ABG HHb (Measured) 4.3 ABG Methemoglobin 1.3 ABG O2 Capacity 19.5 Rambo Test Yes A-a O2 Difference 232.0 Hgb O2 Saturation 92.4 L Vent Mode Vm FiO2 50.0 Hemoglobin A1c Triglycerides Cholesterol LDL Cholesterol Direct HDL Cholesterol TSH 3rd Generation reviewed J.P. - EKG Data EKG comments: reviewed J.P. - Imaging and Cardiology Chest x-ray Status: Report reviewed by me (J.P.) CT scan - head Status: Report reviewed by me (DeliaP.) Additional comment: Head/Neck CTA: Reviewed J.P. Assessment & Plan (1) Pulmonary embolism, bilateral Status: Acute Priority: High (2) COPD (chronic obstructive pulmonary disease) Status: Chronic Priority: High (3) NOHELIA (obstructive sleep apnea) Status: Acute (4) TIA (transient ischemic attack) Status: Acute Priority: High - Assessment and Plan (Free Text) Plan: Continue Venti-Mask 50%, in AM to switch to NC, f/u Genetic markers, in AM switch Lovenox to Eliquis, Xarelto or Pradaxa as per approval by the insurance Co. - Date & Time Date: 06/26/17 Time: 12:00
--- NOTE | 2017-06-26 23:27 | CP.PCM.PN ---
Subjective - Date & Time of Evaluation Date of Evaluation: 06/26/17 Time of Evaluation: 10:35 - Subjective Subjective: Patient remains stable Has no SOB Has no chest pain Objective - Vital Signs/Intake and Output Vital Signs (last 24 hours): Temp Pulse Resp BP Pulse Ox 98.5 F 87 20 139/86 94 L 06/26/17 19:21 06/26/17 21:00 06/26/17 19:21 06/26/17 19:21 06/26/17 19:21 - Medications Medications: Current Medications Amlodipine Besylate (Norvasc) 5 mg PO DAILY [facility] Atorvastatin Calcium (Lipitor) 10 mg PO DAILY [facility] Last Admin: 06/26/17 21:50 Dose: 10 mg Citalopram Hydrobromide (Celexa) 40 mg PO DAILY [facility] Enoxaparin Sodium (Lovenox) 80 mg SC Q12 [facility] PRN Reason: Protocol Last Admin: 06/26/17 21:50 Dose: 80 mg Hydrochlorothiazide (Microzide) 12.5 mg PO DAILY [facility] Sodium Chloride (Sodium Chloride 0.9%) 1,000 mls @ 100 mls/hr IV .Q10H [facility] Last Admin: 06/25/17 08:27 Dose: 100 mls/hr Prazosin HCl (Minipress) 2 mg PO HS [facility] Trazodone HCl (Desyrel) 100 mg PO HS PRN PRN Reason: unable to sleep Last Admin: 06/26/17 22:55 Dose: 100 mg - Labs Labs: 06/25/17 08:08 06/25/17 08:08 PT 11.6 Seconds (9.8-13.1) 06/25/17 08:08 INR 1.0 (0.9-1.2) 06/25/17 08:08 APTT 26.8 Seconds (25.6-37.1) 06/25/17 08:08 - Head Exam Head Exam: NORMAL INSPECTION - Eye Exam Eye Exam: Normal appearance - ENT Exam ENT Exam: Mucous Membranes Moist - Respiratory Exam Respiratory Exam: Clear to Ausculation Bilateral - Cardiovascular Exam Cardiovascular Exam: REGULAR RHYTHM - GI/Abdominal Exam GI & Abdominal Exam: Normal Bowel Sounds - Neurological Exam Neurological Exam: CN II-XII Intact, Oriented x3 Assessment and Plan (1) Pulmonary embolism Status: Acute (2) Hypertension Status: Acute (3) Hyperlipidemia Status: Acute (4) Depression Status: Acute (5) TIA (transient ischemic attack) Status: Acute - Assessment and Plan (Free Text) Plan: Cont meds Cont Tx Cont PT start eliquis tomorrow
[2017-06-27 06:04] LABS: BASO # 0.1 K/uL (0.0-0.2); BASO % 0.5 % (0.0-2.0); EOS # 0.2 K/uL (0.0-0.7); EOS % 2.3 % (0.0-4.0); HEMOGLOBIN 14.6 g/dL (12.0-16.0); LYMPH # 2.8 K/uL (1.0-4.3); LYMPH % 25.6 % (20.0-40.0); MEAN CELL VOLUME 81.2 fl (81.0-99.0); MEAN CORPUSCULAR HEMOGLOBIN 26.8 pg (27.0-31.0); MEAN PLATELET VOLUME 8.2 fl (7.2-11.7); MONO # 0.7 K/uL (0.0-0.8); MONO % 6.7 % (0.0-10.0); NEUT # 7.1 K/uL (1.8-7.0); NEUT % 64.9 % (50.0-75.0); RBC 5.46 Mil/uL (3.80-5.20); RED CELL DISTRIBUTION WIDTH 18.2 % (11.5-14.5); WHITE BLOOD COUNT 10.9 K/uL (4.8-10.8)
[2017-06-27 06:19] LABS: INR 1.1 (0.9-1.2); PROTHROMBIN TIME 12.1 Seconds (9.8-13.1)
[2017-06-27 06:56] LABS: ALB/GLOB RATIO 1.1 (1.0-2.1); ALBUMIN 3.8 g/dL (3.5-5.0); ALT/SGPT 48 U/L (9-52); AST/SGOT 36 U/L (14-36); BLOOD UREA NITROGEN 14 mg/dl (7-17); CALCIUM 9.3 mg/dL (8.4-10.2); GFR AFRICAN-AMERICAN > 60; GFR NON-AFRICAN AMERICAN > 60
[2017-06-27] MEDS: Enoxaparin 80 mg Syringe SC SCH ×2 (09:16→21:07)
--- NOTE | 2017-06-27 10:53 | CP.PCM.PN ---
Subjective - Date & Time of Evaluation Date of Evaluation: 06/27/17 Time of Evaluation: 10:53 - Subjective Subjective: Ms. Williamson was seen and examined at the bedside. She is alert, oriented in all spheres. She denies any headache, shortness of breath, dizziness, lightheadedness, nausea, or vomiting. She is able to follow all simple commands. She remains on venti-mask. There was no untoward events overnight. Objective - Vital Signs/Intake and Output Vital Signs (last 24 hours): Temp Pulse Resp BP Pulse Ox 98.4 F 83 20 129/85 99 06/27/17 08:00 06/27/17 09:16 06/27/17 08:00 06/27/17 09:16 06/27/17 08:00 - Medications Medications: Current Medications Amlodipine Besylate (Norvasc) 5 mg PO DAILY [facility] Last Admin: 06/27/17 09:16 Dose: 5 mg Atorvastatin Calcium (Lipitor) 10 mg PO DAILY [facility] Last Admin: 06/27/17 09:16 Dose: 10 mg Citalopram Hydrobromide (Celexa) 40 mg PO DAILY [facility] Enoxaparin Sodium (Lovenox) 80 mg SC Q12 [facility] PRN Reason: Protocol Last Admin: 06/27/17 09:16 Dose: 80 mg Hydrochlorothiazide (Microzide) 12.5 mg PO DAILY [facility] Last Admin: 06/27/17 09:16 Dose: 12.5 mg Sodium Chloride (Sodium Chloride 0.9%) 1,000 mls @ 100 mls/hr IV .Q10H [facility] Last Admin: 06/25/17 08:27 Dose: 100 mls/hr Prazosin HCl (Minipress) 2 mg PO HS [facility] Trazodone HCl (Desyrel) 100 mg PO HS PRN PRN Reason: unable to sleep Last Admin: 06/26/17 22:55 Dose: 100 mg - Labs Labs: 06/27/17 04:20 06/27/17 04:20 PT 12.1 Seconds (9.8-13.1) 06/27/17 04:20 INR 1.1 (0.9-1.2) 06/27/17 04:20 APTT 29.0 Seconds (25.6-37.1) 06/27/17 04:20 - Constitutional Appears: No Acute Distress - Head Exam Head Exam: NORMAL INSPECTION - Neurological Exam Neurological Exam: Alert, Awake, Oriented x3 Neuro motor strength exam: Left Upper Extremity: 5, Right Upper Extremity: 5, Left Lower Extremity: 5, Right Lower Extremity: 5 Additional comments: Neurological unchanged from previous examination. Assessment and Plan (1) TIA (transient ischemic attack) Assessment & Plan: Case discussed with Dr. Madsen, continue all current medical regimen. Recommend to follow any orders from pulmonology for the patient's pulmonary embolism. Neurology is signing off from this case, please reconsult if there is a change in mental status. Status: Acute
--- NOTE | 2017-06-27 11:36 | CP.PCM.PN ---
Subjective - Date & Time of Evaluation Date of Evaluation: 06/27/17 Time of Evaluation: 11:36 - Subjective Subjective: patient has no SOB Has no chest pain. No further slurreing of speech or weakness of ext. Objective - Vital Signs/Intake and Output Vital Signs (last 24 hours): Temp Pulse Resp BP Pulse Ox 98.4 F 83 20 129/85 99 06/27/17 08:00 06/27/17 09:16 06/27/17 08:00 06/27/17 09:16 06/27/17 08:00 - Medications Medications: Current Medications Amlodipine Besylate (Norvasc) 5 mg PO DAILY [facility] Last Admin: 06/27/17 09:16 Dose: 5 mg Atorvastatin Calcium (Lipitor) 10 mg PO DAILY [facility] Last Admin: 06/27/17 09:16 Dose: 10 mg Citalopram Hydrobromide (Celexa) 40 mg PO DAILY [facility] Last Admin: 06/27/17 11:33 Dose: 40 mg Enoxaparin Sodium (Lovenox) 80 mg SC Q12 [facility] PRN Reason: Protocol Last Admin: 06/27/17 09:16 Dose: 80 mg Hydrochlorothiazide (Microzide) 12.5 mg PO DAILY [facility] Last Admin: 06/27/17 09:16 Dose: 12.5 mg Sodium Chloride (Sodium Chloride 0.9%) 1,000 mls @ 100 mls/hr IV .Q10H [facility] Last Admin: 06/25/17 08:27 Dose: 100 mls/hr Prazosin HCl (Minipress) 2 mg PO HS [facility] Trazodone HCl (Desyrel) 100 mg PO HS PRN PRN Reason: unable to sleep Last Admin: 06/26/17 22:55 Dose: 100 mg - Labs Labs: 06/27/17 04:20 06/27/17 04:20 PT 12.1 Seconds (9.8-13.1) 06/27/17 04:20 INR 1.1 (0.9-1.2) 06/27/17 04:20 APTT 29.0 Seconds (25.6-37.1) 06/27/17 04:20 - Head Exam Head Exam: NORMAL INSPECTION - Eye Exam Eye Exam: Normal appearance - ENT Exam ENT Exam: Mucous Membranes Moist - Respiratory Exam Respiratory Exam: Clear to Ausculation Bilateral - Cardiovascular Exam Cardiovascular Exam: REGULAR RHYTHM - GI/Abdominal Exam GI & Abdominal Exam: Normal Bowel Sounds - Neurological Exam Neurological Exam: Awake, Oriented x3 Assessment and Plan (1) Pulmonary embolism Status: Acute (2) Hypertension Status: Acute (3) Hyperlipidemia Status: Acute (4) Depression Status: Acute (5) TIA (transient ischemic attack) Status: Acute - Assessment and Plan (Free Text) Plan: Cont meds start Eliquis or xarelto cont lovenox while getting approval for xarelto
--- NOTE | 2017-06-27 12:41 | CARD ---
APPROVED REPORT EXAM: Two-dimensional and M-mode echocardiogram with Doppler and color Doppler. Other Information Quality : GoodRhythm : NSR INDICATION Pulmonary Embolism 2D DIMENSIONS IVSd1.19 (0.7-1.1cm)LVDd3.63 (3.9-5.9cm) LVOT Diameter2.01 (1.8-2.4cm)PWd1.00 (0.7-1.1cm) IVSs1.39 (0.8-1.2cm)LVDs2.09 (2.5-4.0cm) FS (%) 42.4 %PWs1.32 (0.8-1.2cm) M-Mode DIMENSIONS Left Atrium (MM)2.52 (2.5-4.0cm)IVSd1.03 (0.7-1.1cm) Aortic Root2.99 (2.2-3.7cm)LVDd3.86 (4.0-5.6cm) Aortic Cusp Exc.1.98 (1.5-2.0cm)PWd0.90 (0.7-1.1cm) IVSs1.80 cmFS (%) 45 % LVDs2.11 (2.0-3.8cm)PWs1.39 cm Aortic Valve LVOT Peak Kdwcruqs23.2cm/sLVOT VTI14.96cm Mitral Valve MV E Ojoolrao51.5cm/sMV DECEL [id number] A Gbbiwtag04.8cm/s MV SZB07jvX/A ratio0.7MVA (PHT)3.71cm2 TDI Lateral E' Peak V7.33cm/sMedial E' Peak V5.05cm/sE/Lateral E'7.4 E/Medial E'10.8 LEFT VENTRICLE The left ventricle is normal in size. There is normal left ventricular wall thickness. The overall left ventricular function is normal. The left ventricular ejection fraction is - 65%. There is normal LV segmental wall motion except for the right ventricualr overload pattern on the septum. Transmitral Doppler flow pattern is Grade I-abnormal relaxation pattern. No left ventricle thrombus noted on this study. There is no ventricular septal defect visualized. There is no left ventricular aneurysm. There is no mass noted in the left ventricle. RIGHT VENTRICLE The right ventricle is severely dilated. There is normal right ventricular wall thickness. There is a right ventricular overload pattern. ATRIA The left atrium size is normal. There is no thrombus suspected in the left atrium. The right atrium is severely dilated. The interatrial septum is intact with no evidence for an atrial septal defect. AORTIC VALVE The aortic valve is mildly thickened. No aortic regurgitation is present. There is no aortic valvular stenosis. MITRAL VALVE The mitral valve is normal in structure. There is no evidence of mitral valve prolapse. There is no mitral valve stenosis. There is no mitral valve regurgitation noted. TRICUSPID VALVE The tricuspid valve is normal in structure. There is mild tricuspid regurgitation. There is no tricuspid valve prolapse or vegetation. There is no tricuspid valve stenosis. PULMONIC VALVE The pulmonary valve is normal in structure. There is mild pulmonic valvular regurgitation. GREAT VESSELS The aortic root is normal in size. The IVC is normal in size and collapses >50% with inspiration. PERICARDIAL EFFUSION The pericardium appears normal. There is no pleural effusion. <Conclusion> The left ventricle is normal in size and wall thickness. The overall left ventricular function is normal. The left ventricular ejection fraction is - 65%. The right ventricle and right atrium are severely dilated. The aortic valve is mildly thickened but not stenotic The mitral and tricuspid valves are normal. There is mild tricuspid regurgitation.
--- NOTE | 2017-06-27 14:11 | PQF GENQUE ---
Dr. Henriquez, Please specify type of COPD:i.e >Stable > With acute exacerbation Bronchiectasis Chronic obstructive bronchitis Emphysema Other COPD (please specify) Clinically unable to determine Unknown DRAFT Pulmonary consult .; Hx of COPD , NOHELIA , Obesity , current smoker on O2 24/ 7 , c/o of with moderate SOB at the same time; -- Patient's sister stated that Patient had COPD on O2 24/7 and off O2 POx is aprox. 85% Respiratory: Dyspnea RespiratoryExam: Decreased Breath Sounds (b/l) Impression: (1) Pulmonary embolism, bilateral Status: Acute Priority: High (2) COPD (chronic obstructive pulmonary disease) Status: Chronic Priority: High (3) NOHELIA (obstructive sleep apnea) Status: Acute (4) TIA (transient ischemic attack) Status: Acute Priority: High Assessment and Plan (Free Text) : Plan: Continue Venti-Mask 50%, in AM to switch to NC, f/u Genetic markers, in AM switch Lovenox to Eliquis , Xarelto or Pradaxa as per approval by the insurance Co. Nasal Cannula; O2 Continuous This form is a permanent part of the medical record Clarification of your documentation is requested to better reflect the severity of illness and intensity of treatment of your patient. Indicators present [] Specify: [] [] Specify: [] [] Specify: [] [] Specify: [] Location in the medical record that reflects the above clinical findings: [] Treatment Provided: [] PHYSICIAN'S RESPONSE Based on your medical judgment of the clinical indicators outlined above please clarify the following: [] Practitioner response [] If unable to determine, please check the box, sign and date. Present On Admission (POA) Indicator: [] Present at the time of admission [] Not present at the time of admission [] Clinically Undetermined In responding to this query, please exercise your independent professional judgment. The fact that a question is asked does not imply that any particular answer is desired or expected. Thank you for your clarification on this documentation. If you have any questions please call. * Thank you, Adrianna Calles RN ext. #[phone] MTDD
--- NOTE | 2017-06-27 16:22 | CP.PCM.PN ---
Subjective - Date & Time of Evaluation Date of Evaluation: 06/27/17 Time of Evaluation: 09:20 - Subjective Subjective: No SOB with O2 , no cough , no chest congestion , no Chest pain Objective - Vital Signs/Intake and Output Vital Signs (last 24 hours): Temp Pulse Resp BP Pulse Ox 98.4 F 96 H 20 138/91 H 94 L 06/27/17 15:42 06/27/17 15:42 06/27/17 15:42 06/27/17 15:42 06/27/17 15:42 - Medications Medications: Current Medications Amlodipine Besylate (Norvasc) 5 mg PO DAILY [facility] Last Admin: 06/27/17 09:16 Dose: 5 mg Atorvastatin Calcium (Lipitor) 10 mg PO DAILY [facility] Last Admin: 06/27/17 09:16 Dose: 10 mg Citalopram Hydrobromide (Celexa) 40 mg PO DAILY [facility] Last Admin: 06/27/17 11:33 Dose: 40 mg Enoxaparin Sodium (Lovenox) 80 mg SC Q12 [facility] PRN Reason: Protocol Last Admin: 06/27/17 09:16 Dose: 80 mg Hydrochlorothiazide (Microzide) 12.5 mg PO DAILY [facility] Last Admin: 06/27/17 09:16 Dose: 12.5 mg Sodium Chloride (Sodium Chloride 0.9%) 1,000 mls @ 100 mls/hr IV .Q10H [facility] Last Admin: 06/25/17 08:27 Dose: 100 mls/hr Prazosin HCl (Minipress) 2 mg PO HS [facility] Trazodone HCl (Desyrel) 100 mg PO HS PRN PRN Reason: unable to sleep Last Admin: 06/26/17 22:55 Dose: 100 mg - Labs Labs: 06/27/17 04:20 06/27/17 04:20 PT 12.1 Seconds (9.8-13.1) 06/27/17 04:20 INR 1.1 (0.9-1.2) 06/27/17 04:20 APTT 29.0 Seconds (25.6-37.1) 06/27/17 04:20 - Constitutional Appears: No Acute Distress - Head Exam Head Exam: NORMAL INSPECTION - Eye Exam Eye Exam: PERRL - ENT Exam ENT Exam: Normal Exam - Neck Exam Neck Exam: Normal Inspection - Respiratory Exam Respiratory Exam: Clear to Ausculation Bilateral - Cardiovascular Exam Cardiovascular Exam: REGULAR RHYTHM - GI/Abdominal Exam GI & Abdominal Exam: Soft, Normal Bowel Sounds - Extremities Exam Extremities Exam: Normal Inspection - Back Exam Back Exam: NORMAL INSPECTION - Neurological Exam Neurological Exam: Alert, CN II-XII Intact. absent: Motor Sensory Deficit - Psychiatric Exam Psychiatric exam: Normal Affect - Skin Skin Exam: Warm Assessment and Plan (1) Pulmonary embolism, bilateral Status: Acute (2) COPD (chronic obstructive pulmonary disease) Status: Chronic (3) NOHELIA (obstructive sleep apnea) Status: Acute (4) TIA (transient ischemic attack) Status: Acute - Assessment and Plan (Free Text) Plan: continue Lovenox , cpap , pending approval by Insurance of [place] , Daniel or Pradaxa
[2017-06-28 00:22] VITALS: RESP 18
[2017-06-28] MEDS ORDERED: Potassium Chloride 20 mEq ER Tab PO ONE (07:08)
[2017-06-28] MEDS: Enoxaparin 80 mg Syringe SC SCH (08:24)
--- NOTE | 2017-06-28 09:32 | CP.PCM.PN ---
Subjective - Date & Time of Evaluation Date of Evaluation: 06/28/17 Time of Evaluation: 07:45 - Subjective Subjective: Patient seen and examined this morning at bedside w/ Dr. Henriquez. There are no acute events overnight, NAD. Patient feeling better, ambulating freely w/o assistance, voiding, and has no slurred speech. The patient denies headaches, chest pain, SOB, abdominal pain, nausea, vomiting, diarrhea, dysuria, or fever. Objective - Vital Signs/Intake and Output Vital Signs (last 24 hours): Temp Pulse Resp BP Pulse Ox 98.2 F 81 18 123/80 94 L 06/28/17 07:51 06/28/17 08:25 06/28/17 07:51 06/28/17 08:25 06/28/17 07:51 - Medications Medications: Current Medications Amlodipine Besylate (Norvasc) 5 mg PO DAILY [facility] Last Admin: 06/28/17 08:25 Dose: 5 mg Atorvastatin Calcium (Lipitor) 10 mg PO DAILY [facility] Last Admin: 06/28/17 08:25 Dose: 10 mg Citalopram Hydrobromide (Celexa) 40 mg PO DAILY [facility] Last Admin: 06/28/17 08:24 Dose: 40 mg Enoxaparin Sodium (Lovenox) 80 mg SC Q12 [facility] PRN Reason: Protocol Last Admin: 06/28/17 08:24 Dose: 80 mg Hydrochlorothiazide (Microzide) 12.5 mg PO DAILY [facility] Last Admin: 06/28/17 08:25 Dose: 12.5 mg Sodium Chloride (Sodium Chloride 0.9%) 1,000 mls @ 100 mls/hr IV .Q10H [facility] Last Admin: 06/25/17 08:27 Dose: 100 mls/hr Prazosin HCl (Minipress) 2 mg PO HS [facility] Last Admin: 06/27/17 21:05 Dose: 2 mg Trazodone HCl (Desyrel) 100 mg PO HS PRN PRN Reason: unable to sleep Last Admin: 06/27/17 21:06 Dose: 100 mg - Labs Labs: 06/27/17 04:20 06/27/17 04:20 PT 12.1 Seconds (9.8-13.1) 06/27/17 04:20 INR 1.1 (0.9-1.2) 06/27/17 04:20 APTT 29.0 Seconds (25.6-37.1) 06/27/17 04:20 - Constitutional Appears: Non-toxic, No Acute Distress - Head Exam Head Exam: ATRAUMATIC, NORMAL INSPECTION, NORMOCEPHALIC - Eye Exam Eye Exam: EOMI, Normal appearance, PERRL - ENT Exam ENT Exam: Mucous Membranes Moist - Neck Exam Neck Exam: Full ROM. absent: Tenderness - Respiratory Exam Respiratory Exam: Clear to Ausculation Bilateral. absent: Accessory Muscle Use , Decreased Breath Sounds, Rales, Rhonchi, Wheezes, Respiratory Distress - Cardiovascular Exam Cardiovascular Exam: REGULAR RHYTHM. absent: Tachycardia - GI/Abdominal Exam GI & Abdominal Exam: Soft, Normal Bowel Sounds. absent: Distended, Tenderness - Extremities Exam Extremities Exam: absent: Calf Tenderness, Pedal Edema, Tenderness - Neurological Exam Neurological Exam: Alert, Awake, Oriented x3 - Skin Skin Exam: Dry, Intact, Normal Color, Warm Assessment and Plan (1) Pulmonary embolism Status: Acute (2) TIA (transient ischemic attack) Status: Acute (3) Hyperlipidemia Status: Chronic (4) Hypertension Status: Chronic - Assessment and Plan (Free Text) Plan: c/w present management c/w home medications afebrile, non-tachycardic, normotensive neurology recommendations appreciated pulmonology recommendations appreciated U/S lower extremity 06/25/2017: no evidence of DVT c/w therapeutic lovenox 80 mg SC Q12h until approved for xarelto monitor for acute changes
[2017-06-28 11:06] LABS: INR 1.1 (0.9-1.2); PROTHROMBIN TIME 12.7 Seconds (9.8-13.1)
--- NOTE | 2017-06-28 11:50 | CP.PCM.DIS ---
Provider - Provider Date of Admission: 06/25/17 10:13 Attending physician: Ellis Henriquez MD Time Spent in preparation of Discharge (in minutes): 15 Diagnosis - Discharge Diagnosis (1) Pulmonary embolism Status: Acute (2) TIA (transient ischemic attack) Status: Acute Priority: High (3) Hyperlipidemia Status: Chronic (4) Hypertension Status: Chronic Hospital Course - Lab Results Lab Results: Most Recent Lab Values WBC 10.9 K/uL (4.8-10.8) H 06/27/17 04:20 RBC 5.46 Mil/uL (3.80-5.20) H 06/27/17 04:20 Hgb 14.6 g/dL (12.0-16.0) 06/27/17 04:20 Hct 44.3 % (34.0-47.0) 06/27/17 04:20 MCV 81.2 fl (81.0-99.0) 06/27/17 04:20 MCH 26.8 pg (27.0-31.0) L 06/27/17 04:20 MCHC 33.0 g/dL (33.0-37.0) 06/27/17 04:20 RDW 18.2 % (11.5-14.5) H 06/27/17 04:20 Plt Count 283 K/uL (130-400) 06/27/17 04:20 MPV 8.2 fl (7.2-11.7) 06/27/17 04:20 Neut % (Auto) 64.9 % (50.0-75.0) 06/27/17 04:20 Lymph % (Auto) 25.6 % (20.0-40.0) 06/27/17 04:20 [place] % (Auto) 6.7 % (0.0-10.0) 06/27/17 04:20 Eos % (Auto) 2.3 % (0.0-4.0) 06/27/17 04:20 Baso % (Auto) 0.5 % (0.0-2.0) 06/27/17 04:20 Neut # (Auto) 7.1 K/uL (1.8-7.0) H 06/27/17 04:20 Lymph # (Auto) 2.8 K/uL (1.0-4.3) 06/27/17 04:20 [place] # (Auto) 0.7 K/uL (0.0-0.8) 06/27/17 04:20 Eos # (Auto) 0.2 K/uL (0.0-0.7) 06/27/17 04:20 Baso # (Auto) 0.1 K/uL (0.0-0.2) 06/27/17 04:20 PT 12.7 Seconds (9.8-13.1) 06/28/17 10:00 INR 1.1 (0.9-1.2) 06/28/17 10:00 APTT 29.0 Seconds (25.6-37.1) 06/27/17 04:20 pCO2 43 mm/Hg (35-45) 06/26/17 05:50 pO2 71 mm/Hg (80-100) L 06/26/17 05:50 HCO3 27.0 mmol/L (21-28) 06/26/17 05:50 ABG pH 7.42 (7.35-7.45) 06/26/17 05:50 ABG Total CO2 29.2 mmol/L (22-28) H 06/26/17 05:50 ABG O2 Saturation 95.6 % (95-98) 06/26/17 05:50 ABG O2 Content 18.6 ML/dL (15-23) 06/26/17 05:50 ABG Base Excess 2.9 mmol/L (-2.0-3.0) 06/26/17 05:50 ABG Hemoglobin 14.3 g/dL (11.7-17.4) 06/26/17 05:50 ABG Carboxyhemoglobin 2.1 % (0.5-1.5) H 06/26/17 05:50 POC ABG HHb (Measured) 4.3 % (0.0-5.0) 06/26/17 05:50 ABG Methemoglobin 1.3 % (0.0-3.0) 06/26/17 05:50 ABG O2 Capacity 19.5 mL/dL (16-24) 06/26/17 05:50 Rambo Test Yes 06/26/17 05:50 A-a O2 Difference 232.0 mm/Hg 06/26/17 05:50 Hgb O2 Saturation 92.4 % (95.0-98.0) L 06/26/17 05:50 Vent Mode Vm 06/26/17 05:50 FiO2 50.0 % 06/26/17 05:50 Sodium 148 mmol/l (132-148) 06/27/17 04:20 Potassium 3.4 MMOL/L (3.6-5.0) L 06/27/17 04:20 Chloride 104 mmol/L (98-107) 06/27/17 04:20 Carbon Dioxide 29 mmol/L (22-30) 06/27/17 04:20 Anion Gap 18 (10-20) 06/27/17 04:20 BUN 14 mg/dl (7-17) 06/27/17 04:20 Creatinine 0.9 mg/dl (0.7-1.2) 06/27/17 04:20 Est GFR ( Amer) > 60 06/27/17 04:20 Est GFR (Non-Af Amer) > 60 06/27/17 04:20 POC Glucose (mg/dL) 129 mg/dL (65-110) H 06/27/17 11:39 Random Glucose 120 mg/dL (65-105) H 06/27/17 04:20 Hemoglobin A1c 6.3 % (4.2-6.5) 06/26/17 05:20 Calcium 9.3 mg/dL (8.4-10.2) 06/27/17 04:20 Total Bilirubin 0.7 mg/dl (0.2-1.3) 06/27/17 04:20 AST 36 U/L (14-36) 06/27/17 04:20 ALT 48 U/L (9-52) 06/27/17 04:20 Alkaline Phosphatase 84 U/L (38-126) 06/27/17 04:20 Troponin I 0.0410 ng/mL (0.00-0.120) 06/25/17 08:08 Total Protein 7.1 G/DL (6.3-8.2) 06/27/17 04:20 Albumin 3.8 g/dL (3.5-5.0) 06/27/17 04:20 Globulin 3.3 gm/dL (2.2-3.9) 06/27/17 04:20 Albumin/Globulin Ratio 1.1 (1.0-2.1) 06/27/17 04:20 Triglycerides 124 mg/DL (0-149) 06/26/17 05:20 Cholesterol 146 mg/dL (0-199) 06/26/17 05:20 LDL Cholesterol Direct 78 mg/dL (0-129) 06/26/17 05:20 HDL Cholesterol 37 MG/DL (30-70) 06/26/17 05:20 TSH 3rd Generation 2.78 mIU/ML (0.46-4.68) 06/26/17 05:20 Blood Type B POSITIVE 06/25/17 08:23 Antibody Screen Negative 06/25/17 08:23 BBK History Checked No verified bt 06/25/17 08:23 - Hospital Course Hospital Course: 57 y/o woman w/ pmh of stable COPD (on home O2), HTN, HLD admitted for TIA and PE. Patient seen and evaluated in ED for slurred speech and right arm weakness. Patient had head CT which was negative for intrcranial pathology. Patient also head CTA of the head and neck which showed no intracranial vascular abnormality; however, showed incidental PE of the upper lobes. Patient seen by neurology and pulmonology. Patient cleared by neuro. Patient started on therapeutic lovenox for anticoagulation and has been approved for eliquis for anticoagulation on DC. The patient reports feeling better, strength returned, speaking w/o slurring, voiding, and ambulating freely. The patient denies headaches, chest pain, SOB, abdominal pain, nausea, vomiting, diarrhea, dysuria, or fever. The patient has been seen, examined, and deemed medically fit for discharge home. The patient has been given an updated medication list and prescriptions. The patient is to start eliquis 5 mg PO Q12h for anticoagulation. [facility]. Discharge Exam - Head Exam Head Exam: ATRAUMATIC, NORMAL INSPECTION, NORMOCEPHALIC - Eye Exam Eye Exam: Normal appearance - ENT Exam ENT Exam: Mucous Membranes Moist - Neck Exam Neck exam: Full Rom - Respiratory Exam Respiratory Exam: Clear to PA & Lateral. absent: Accessory Muscle Use, Decreased Breath Sounds, Rales, Rhonchi, Wheezes, Respiratory Distress - Cardiovascular Exam Cardiovascular Exam: REGULAR RHYTHM. absent: Tachycardia - GI/Abdominal Exam GI & Abdominal Exam: Normal Bowel Sounds, Soft. absent: Distended, Tenderness - Extremities Exam Extremities exam: normal inspection - Neurological Exam Neurological exam: Alert, CN II-XII Intact, Normal Gait, Oriented x3 - Skin Skin Exam: Dry, Intact, Normal Color, Warm Discharge Plan - Discharge Medications Prescriptions: Atorvastatin [Lipitor] 10 mg PO DAILY #30 tab - Follow Up Plan Condition: FAIR Disposition: HOME/ ROUTINE Clinical Quality Measures - CQM - VTE Did patient receive overlap therapy during hosptialization?: Yes If yes, what was given to the patient?: lovenox 80 mg SC Q12h Is patient being discharged on overlap therapy?: Yes If yes, what prescription has been given to the patient?: eliquis 5 mg PO daily
[2017-06-28 12:22] VITALS: BP 114/79; PULSE 77; TEMP 98.1; O2SAT 95
--- NOTE | 2017-06-28 12:45 | CP.PCM.PN ---
Subjective - Date & Time of Evaluation Date of Evaluation: 06/28/17 Time of Evaluation: 12:30 - Subjective Subjective: F/U PE No shortness of breath , no dyspnea on exertion , no chest congestion , no chest pain Objective - Vital Signs/Intake and Output Vital Signs (last 24 hours): Temp Pulse Resp BP Pulse Ox 98.1 F 77 18 114/79 95 06/28/17 12:22 06/28/17 12:22 06/28/17 12:22 06/28/17 12:22 06/28/17 12:22 - Medications Medications: Current Medications Amlodipine Besylate (Norvasc) 5 mg PO DAILY [facility] Last Admin: 06/28/17 08:25 Dose: 5 mg Apixaban (Eliquis) 10 mg PO BID [facility] PRN Reason: Protocol Atorvastatin Calcium (Lipitor) 10 mg PO DAILY [facility] Last Admin: 06/28/17 08:25 Dose: 10 mg Citalopram Hydrobromide (Celexa) 40 mg PO DAILY [facility] Last Admin: 06/28/17 08:24 Dose: 40 mg Hydrochlorothiazide (Microzide) 12.5 mg PO DAILY [facility] Last Admin: 06/28/17 08:25 Dose: 12.5 mg Sodium Chloride (Sodium Chloride 0.9%) 1,000 mls @ 100 mls/hr IV .Q10H [facility] Last Admin: 06/25/17 08:27 Dose: 100 mls/hr Prazosin HCl (Minipress) 2 mg PO HS [facility] Last Admin: 06/27/17 21:05 Dose: 2 mg Trazodone HCl (Desyrel) 100 mg PO HS PRN PRN Reason: unable to sleep Last Admin: 06/27/17 21:06 Dose: 100 mg - Labs Labs: 06/27/17 04:20 06/27/17 04:20 PT 12.7 Seconds (9.8-13.1) 06/28/17 10:00 INR 1.1 (0.9-1.2) 06/28/17 10:00 APTT 29.0 Seconds (25.6-37.1) 06/27/17 04:20 - Constitutional Appears: No Acute Distress - Head Exam Head Exam: NORMAL INSPECTION - Eye Exam Eye Exam: PERRL - ENT Exam ENT Exam: Normal Exam - Neck Exam Neck Exam: Normal Inspection - Respiratory Exam Respiratory Exam: Clear to Ausculation Bilateral - Cardiovascular Exam Cardiovascular Exam: REGULAR RHYTHM - GI/Abdominal Exam GI & Abdominal Exam: Soft, Normal Bowel Sounds - Extremities Exam Extremities Exam: Normal Inspection - Back Exam Back Exam: NORMAL INSPECTION - Neurological Exam Neurological Exam: Alert, CN II-XII Intact, Oriented x3 - Psychiatric Exam Psychiatric exam: Normal Mood - Skin Skin Exam: Warm Assessment and Plan (1) Pulmonary embolism, bilateral Status: Acute (2) COPD (chronic obstructive pulmonary disease) Status: Chronic (3) NOHELIA (obstructive sleep apnea) Status: Acute (4) TIA (transient ischemic attack) Status: Acute - Assessment and Plan (Free Text) Plan: Eliquis approved by insurance company , continue CPAP , patient is pulmonary clear to for discharge
[2017-06-30 05:40] LABS: B2 GLYCOPROTEIN I AB(IGA) <9 SAU (<=20); B2 GLYCOPROTEIN I AB(IGG) <9 SGU (<=20); B2 GLYCOPROTEIN I AB(IGM) <9 SMU (<=20); PHOSPHATIDYLSERINE AB IGA <20 U/mL (<20); PHOSPHATIDYLSERINE AB IGG <10 U/mL (<10); PHOSPHATIDYLSERINE AB IGM <25 U/mL (<25)
== END 2017-06-28 14:38 | disposition home or self-care (01) | DRG 176 ==
LOC: H.ER 07:34 → H.ERHOLD 10:13 → H.TEL 13:37
PROVIDERS: ADMIT Family Medicine; ATTEND Family Medicine
DX: I26.99 Other pulmonary embolism without acute cor pulmonale (principal); G45.9 Transient cerebral ischemic attack, unspecified; I10 Essential (primary) hypertension; E78.5 Hyperlipidemia, unspecified; E78.00 Pure hypercholesterolemia, unspecified; F32.9 Major depressive disorder, single episode, unspecified; G47.33 Obstructive sleep apnea (adult) (pediatric); F17.200 Nicotine dependence, unspecified, uncomplicated; E66.9 Obesity, unspecified; Z68.31 Body mass index [BMI] 31.0-31.9, adult; J44.9 Chronic obstructive pulmonary disease, unspecified; Z99.81 Dependence on supplemental oxygen